=== PATIENT | male | born 1980 | race Caucasian/White ===

== ENCOUNTER 2022-12-28 10:33 | Inpatient (IN) ==
--- NOTE | 2022-12-28 11:11 | Emergency Department Note ---
Impression & Plan Hypoxia, Rhinovirus, Chest pain, Shortness of breath ED Provider Note NAME: KARINA MORROW AGE: 42 SEX: M : 1980 ARRIVES VIA: Walk-In INFORMANT: Patient ED PROVIDER(S): Jerrell Dockery DO CHIEF COMPLAINT: Cough, chest pain and shortness of breath HPI: Patient is a 42-year-old male with a past medical history of hypertension, depression, alcoholism, who is a smoker that presents to the ER for cough, congestion, runny nose, and a sore throat which started this past Thursday. He notes that he has diffuse myalgias and arthralgias as well as low-grade fevers at home. Denies any belly pain, nausea, vomiting, or diarrhea. No dysuria, urgency, or frequency. Does have midsternal chest pain which is worse on palpation and has been constant since this started on Thursday. Shortness of breath is worse with coughing as well. PAST MEDICAL HISTORY:See Below PAST SURGICAL HISTORY:See Below FAMILY HISTORY:See Below SOCIAL HISTORY:See Below HOME MEDICATIONS:See Below ALLERGIES:See Below VITALS:See Below PHYSICAL EXAMINATION: GENERAL: Sitting up in bed, alert, ill-appearing, disheveled, mild distress EYE EXAM: normal conjunctiva. OROPHARYNX: no exudate, no erythema, lips, buccal mucosa, and tongue normal and mucous membranes are moist NECK: supple, no nuchal rigidity, no adenopathy, non-tender LUNGS: Mild wheezing bilateral. Normal chest wall mechanics HEART: no murmurs, S1 normal and S2 normal ABDOMEN: abdomen soft, non-tender, normo-active bowel sounds, no masses, no rebound or guarding. UPPER EXTREMITIES: upper extremities are grossly normal. LOWER EXTREMITIES: No pitting edema. NEURO EXAM: Normal sensorium, cranial nerves II-XII grossly intact, normal speech, no gross weakness of arms, no gross weakness of legs. MEDICAL DECISION MAKING: Patient is a 42-year-old male who presents ER for upper respiratory symptoms. IV was established medicals obtained. Patient was found to be hypoxic at 86% on room air. Placed on 2 L nasal cannula. Did have obvious wheezing on exam. Was given an hour-long neb treatment as well as steroids in light of a history of smoking. Labs show no significant leukocytosis. Mild anemia 13. BMP along with LFTs bilirubin was unremarkable. Lipase is normal. Pro-Magno was negative. Viral panel was positive for rhinovirus. Chest x-ray was clean. Patient was updated bedside discussed with the hospitalist admitted for further work-up of his hypoxia likely secondary to rhinovirus with a history of smoking. Triage Nursing notes reviewed. Limited review of prior medical records performed Vital Signs: reviewed and remarkable for HTN Differential diagnosis: Differential diagnoses includes but is not limited to pneumonia, bronchitis, COPD/Asthma exacerbation, pneumothorax, pulmonary embolism, congestive heart failure, acute coronary syndrome ER treatment provided: See below Diagnostics interpreted by me include EKG and cardiac monitoring as listed below: -Cardiac Monitoring: An order was placed for continuous cardiac monitoring. The monitor shows a rate of 80 with sinus rhythm. -ECG: Sinus rhythm rate 80 Normal axis No PVCs QTc 410 -Laboratory studies:Interpreted by me as stated above in MDM and shown below. Imaging studies: Xrays: As interpreted by me: Portable AP upright 1 view of the chest shows no focal infiltrate per my read CTs show: none Consultation(s): As described in [facility] Procedures:none Critical Care: I have personally spent 31 minutes of critical care time in the direct management of this patient. This includes bedside care, interpretation of diagnostic studies, and testing, discussion with consultants, patient, and family members, and other required patient management activities. This 31 minutes is in excess of all separately billable procedures. Past Med/Surg History Medical History Anxiety and depression GERD (gastroesophageal reflux disease) Hernia History of COVID-19 History of gastric ulcer History of kidney stones Hx of chest pain Hx of migraines Hx of shortness of breath Hyperlipidemia Hypertension Lower abdominal pain Lumbar herniated disc Morbid obesity with BMI of 40.0-44.9, adult Sleep apnea Surgical History History of back surgery History of colonoscopy History of cystoscopy History of esophagogastroduodenoscopy (EGD) (06/2019) History of tooth extraction Hx of appendectomy S/P epidural steroid injection Family History Uncle Family history of diabetes mellitus Uncle Family history of diabetes mellitus Grandmother (Maternal) Family history of diabetes mellitus Other Hypertension No family history of adverse response to anesthesia Denies family history of Ovarian cancer Prostate cancer Breast cancer Colorectal cancer Social History Smoking Status: Current every day smoker Tobacco Type: Cigarettes packs per day: 1.5; Cigarettes Per Day: 20; Second Hand Exposure: No; Do You Dip or Chew Tobacco: No; Hx Alcohol Use: Yes Alcohol type: beer Alcohol Intake Frequency: 4 or More x per/Week Hx Substance Use: No Preferred Language: Kyrgyz Communication Ability: Effective Personnel And Payroll Technician Required: No Beliefs That Will Affect Care: None marital status: Legally Current Living Situation: Parent, Family and Significant Other current occupational status: employed current occupation: Labor How many Children do You have: 3 Feels Safe at Home: Yes Childhood Exposure to Second-Hand Smoke: Yes Diet: regular caffeine: Yes during the past year weight has: increased > 10 lbs Dental Care, Regularly: No Physical Activity Frequency: 3-4 Times per Week Seatbelt Use: sometimes Sunscreen Use: No Assistive Devices: Cane, CPAP, Denture - Upper, Denture - Lower and Glasses Allergies Allergies Allergy/AdvReac Type Severity Reaction Status Date / Time No Known Allergies Allergy Verified 12/28/22 14:32 Home Meds Home Medications Medication Instructions Recorded Confirmed fluticasone propionate 50 See Rx Instructions intranasal BID 07/22/22 12/28/22 mcg/actuation nasal PRN Congestion spray,suspension (Flonase Allergy Relief) Previous Rx's Medication Instructions Recorded amlodipine 10 mg tablet 10 mg PO QAM #30 tabs 07/22/22 bupropion HCl 150 mg 24 hr tablet, 150 mg PO QAM #30 tabs 07/22/22 extended release (Wellbutrin XL) hydroxyzine HCl 25 mg tablet 25 mg PO TID PRN anxiety #90 tabs 07/22/22 lisinopril 10 mg tablet 10 mg PO QAM #30 tabs 07/22/22 pantoprazole 40 mg tablet,delayed 40 mg PO QAM #30 tabs 07/22/22 release sertraline 100 mg tablet 100 mg PO QAM #30 tabs 07/22/22 sumatriptan succinate 50 mg tablet 50 mg PO UD PRN Migraine Headache 07/22/22 #30 tabs triamcinolone acetonide 0.1 % 1 applic topical BID PRN rash #15 07/22/22 topical cream grams atorvastatin 40 mg tablet 40 mg PO QPM #30 tabs 11/07/22 gabapentin 800 mg tablet 800 mg PO TID #90 tabs 11/07/22 tizanidine 4 mg tablet 4 mg PO Q6H PRN muscle spasticity 11/07/22 #90 tabs albuterol sulfate 90 mcg/actuation 3 inh inhalation Q6H PRN shortness 12/15/22 aerosol inhaler of breath or wheezing #6.7 grams Results & Data (ED) Vital Signs Vital Signs - 24 hr 12/28/22 10:40 12/28/22 11:55 12/28/22 12:14 Temperature 37.1 C Temperature Source Oral Pulse Rate 78 77 Pulse Rate [Bilateral] Pulse Rate [Right Finger] Respiratory Rate 24 Respiratory Effort / Characteristics Blood Pressure 153/98 H Blood Pressure [Right Arm] Blood Pressure Mean 116 Blood Pressure Mean [Right Arm] Blood Pressure Position Sitting Pulse Oximetry 92 86 L Oxygen Delivery Method Room Air Room Air Oxygen Flow Rate Sepsis Recent Fever Within 48 Hours No Sepsis New/Unexplained Change in Mental Status No Sepsis Action Taken by Nursing No Action Required 12/28/22 12:14 12/28/22 12:33 12/28/22 13:17 Temperature Temperature Source Pulse Rate Pulse Rate [Bilateral] 100 H Pulse Rate [Right Finger] 75 Respiratory Rate 16 18 Respiratory Effort / Characteristics Non-Labored Spontaneous Blood Pressure Blood Pressure [Right Arm] 153/94 H Blood Pressure Mean Blood Pressure Mean [Right Arm] 113 Blood Pressure Position Pulse Oximetry 90 93 95 Oxygen Delivery Method Room Air Room Air Aerosol Mask Oxygen Flow Rate 7 Sepsis Recent Fever Within 48 Hours Sepsis New/Unexplained Change in Mental Status Sepsis Action Taken by Nursing 12/28/22 14:21 12/28/22 14:22 12/28/22 14:23 Temperature Temperature Source Pulse Rate Pulse Rate [Bilateral] 85 Pulse Rate [Right Finger] Respiratory Rate 20 Respiratory Effort / Characteristics Blood Pressure Blood Pressure [Right Arm] Blood Pressure Mean Blood Pressure Mean [Right Arm] Blood Pressure Position Pulse Oximetry 86 L 90 90 Oxygen Delivery Method Room Air Nasal Cannula Nasal Cannula Oxygen Flow Rate 2 4 Sepsis Recent Fever Within 48 Hours Sepsis New/Unexplained Change in Mental Status Sepsis Action Taken by Nursing Laboratory Data 12/28/22 11:56 12/28/22 11:56 Lab Results 12/28/22 12/28/22 12/28/22 Range/Units 11:46 11:46 11:56 WBC 8.67 (4.8-10.8) K/ul RBC 4.50 L (4.70-6.10) M/uL Hgb 13.8 L (14.0-18.0) g/dl Hct 40.3 L (42.0-52.0) % MCV 89.6 (80.0-100.0) fL MCH 30.7 (25.0-34.0) pg MCHC 34.2 (32.0-36.0) g/dL RDW Std Deviation 43.0 (36.4-46.3) fL RDW Coeff of Boris 13.0 (11.5-14.5) % Plt Count 254 (130-400) K/uL MPV 9.3 L (9.4-12.4) fL Immature Gran % (Auto) 0.7 % Neut % (Auto) 65.9 % Lymph % (Auto) 19.0 % Stephens % (Auto) 8.7 % Eos % (Auto) 5.0 % Baso % (Auto) 0.7 % Neut # (Auto) 5.72 (1.40-6.50) K/uL Lymph # (Auto) 1.65 (1.2-3.4) K/uL Stephens # (Auto) 0.75 H (0.11-0.59) K/uL Eos # (Auto) 0.43 (0-0.50) K/uL Baso # (Auto) 0.06 (0-0.2) K/uL Immature Gran # (Auto) 0.06 (0.01-0.20) K/uL Sodium (136-145) mmol/L Potassium (3.5-5.1) mmol/L Chloride (98-107) mmol/L Carbon Dioxide (21-32) mmol/L Anion Gap (3-11) BUN (6-23) mg/dl Creatinine (0.6-1.4) mg/dl Est Cr Clr Drug Dosing ml/min Est GFR ( Amer) ml/min Est GFR (Non-Af Amer) ml/min BUN/Creatinine Ratio (10-20) Glucose (70-99(Fasting)) mg/dl Calcium (8.6-10.3) mg/dl Magnesium (1.7-2.4) mg/dl Total Bilirubin (0.2-1.0) mg/dl AST (13-39) U/L ALT (7-52) U/L Alkaline Phosphatase (34-104) U/L Troponin I High Sens (0-20) pg/ml Total Protein (6.0-8.3) gm/dl Albumin (3.4-5.0) gm/dl Globulin (2.5-4.0) gm/dl Albumin/Globulin Ratio (0.9-2) Lipase (11-82) U/L Procalcitonin (0-0.5) ng/ml Adenovirus (PCR) Not Detected (NotDetected) B. pertussis DNA (PCR) Not Detected (NotDetected) B.parapertussis DNA PCR Not Detected (NotDetected) C. pneumoniae DNA (PCR) Not Detected (NotDetected) Coronavirus OC43 (PCR) Not Detected (NotDetected) Coronavirus HKU1 (PCR) Not Detected (NotDetected) Coronavirus 229E (PCR) Not Detected (NotDetected) SARS-CoV-2 (PCR) NEGATIVE Not Detected (Negative) Coronavirus NL63 (PCR) Not Detected (NotDetected) Human Metapneumovir PCR Not Detected (NotDetected) Influenza Type A (PCR) Not Detected (NotDetected) Influenza Type B (PCR) Not Detected (NotDetected) M. pneumoniae (PCR) Not Detected (NotDetected) Parainfluenza 1 (PCR) Not Detected (NotDetected) Parainfluenza 2 (PCR) Not Detected (NotDetected) Parainfluenza 3 (PCR) Not Detected (NotDetected) Parainfluenza 4 (PCR) Not Detected (NotDetected) RSV (PCR) Not Detected (NotDetected) Entero/Rhino (PCR) DETECTED A* (NotDetected) 12/28/22 12/28/22 Range/Units 11:56 11:56 WBC (4.8-10.8) K/ul RBC (4.70-6.10) M/uL Hgb (14.0-18.0) g/dl Hct (42.0-52.0) % MCV (80.0-100.0) fL MCH (25.0-34.0) pg MCHC (32.0-36.0) g/dL RDW Std Deviation (36.4-46.3) fL RDW Coeff of Boris (11.5-14.5) % Plt Count (130-400) K/uL MPV (9.4-12.4) fL Immature Gran % (Auto) % Neut % (Auto) % Lymph % (Auto) % Stephens % (Auto) % Eos % (Auto) % Baso % (Auto) % Neut # (Auto) (1.40-6.50) K/uL Lymph # (Auto) (1.2-3.4) K/uL Stephens # (Auto) (0.11-0.59) K/uL Eos # (Auto) (0-0.50) K/uL Baso # (Auto) (0-0.2) K/uL Immature Gran # (Auto) (0.01-0.20) K/uL Sodium 137 (136-145) mmol/L Potassium 4.4 (3.5-5.1) mmol/L Chloride 102 (98-107) mmol/L Carbon Dioxide 30 (21-32) mmol/L Anion Gap 5 (3-11) BUN 12 (6-23) mg/dl Creatinine 0.95 (0.6-1.4) mg/dl Est Cr Clr Drug Dosing 114.9 ml/min Est GFR ( Amer) 113.2 ml/min Est GFR (Non-Af Amer) 97.6 ml/min BUN/Creatinine Ratio 12.6 (10-20) Glucose 102 H (70-99(Fasting)) mg/dl Calcium 9.7 (8.6-10.3) mg/dl Magnesium 1.9 (1.7-2.4) mg/dl Total Bilirubin 0.4 (0.2-1.0) mg/dl AST 21 (13-39) U/L ALT 27 (7-52) U/L Alkaline Phosphatase 140 H (34-104) U/L Troponin I High Sens 4.1 (0-20) pg/ml Total Protein 7.5 (6.0-8.3) gm/dl Albumin 4.5 (3.4-5.0) gm/dl Globulin 3.0 (2.5-4.0) gm/dl Albumin/Globulin Ratio 1.5 (0.9-2) Lipase 9 L (11-82) U/L Procalcitonin 0.05 (0-0.5) ng/ml Adenovirus (PCR) (NotDetected) B. pertussis DNA (PCR) (NotDetected) B.parapertussis DNA PCR (NotDetected) C. pneumoniae DNA (PCR) (NotDetected) Coronavirus OC43 (PCR) (NotDetected) Coronavirus HKU1 (PCR) (NotDetected) Coronavirus 229E (PCR) (NotDetected) SARS-CoV-2 (PCR) (Negative) Coronavirus NL63 (PCR) (NotDetected) Human Metapneumovir PCR (NotDetected) Influenza Type A (PCR) (NotDetected) Influenza Type B (PCR) (NotDetected) M. pneumoniae (PCR) (NotDetected) Parainfluenza 1 (PCR) (NotDetected) Parainfluenza 2 (PCR) (NotDetected) Parainfluenza 3 (PCR) (NotDetected) Parainfluenza 4 (PCR) (NotDetected) RSV (PCR) (NotDetected) Entero/Rhino (PCR) (NotDetected) Administered Medications Discontinued Medications Albuterol (Albuterol 0.083% Nebu Soln 3 Ml Vial) 10 mg NEB NOW STA; Protocol Stop: 12/28/22 12:14 Last Admin: 12/28/22 12:32 Dose: 10 mg Documented By: LELAND Magnesium Sulfate/Dextrose (Magnesium Sulfate / D5w) 1 gm in 100 mls @ 50 mls/hr IV ONE ONE Stop: 12/28/22 15:31 Last Admin: 12/28/22 14:17 Dose: 50 mls/hr Documented By: BENITA Ioversol (Ioversol 350 Mg 125ml Prefilled Syringe) 120 ml IV ONCE ONE Stop: 12/28/22 14:05 Last Admin: 12/28/22 14:04 Dose: 120 ml Documented By: ELIER Methylprednisolone (Methylprednisolone 40 Mg/Ml Vial) 40 mg IV NOW STA Stop: 12/28/22 12:14 Last Admin: 12/28/22 12:54 Dose: 40 mg Documented By: TBS Imaging Data Radiologist's Impression: Chest X-Ray 12/28/22 10:51 XR chest 1V portable CLINICAL HISTORY: Chest pain, nonspecific TECHNIQUE: Single frontal radiograph of the chest was obtained. Comparison: None available at the time of this dictation. FINDINGS: No lines and tubes are seen. The cardiomediastinal silhouette is normal. The lungs are clear. No evidence of pleural effusion or pneumothorax. IMPRESSION: No acute chest disease. ACT 112: Negative or not required by law. Electronically signed by: Cole Mathew M.D. 12/28/2022 11:12 AM Chest CTA 12/28/22 13:17 CT angio chest PE protocol CLINICAL HISTORY: PE TECHNIQUE: Multidetector row helical CT of the chest was performed with angiographic protocol. Coronal and sagittal reformations were obtained. Coronal and sagittal MIPS were obtained from the axial data set and were submitted for review. Automated dose lowering techniques and/or adjustment according to patient size were utilized for this exam. CT DOSE: 914.05 mGy.cm Comparison: None available at the time of this dictation. FINDINGS: Lungs and pleura: Normal. Heart and pericardium: Heart size is normal. No pericardial effusion. Vessels: No evidence of pulmonary embolism. Mediastinum and chao: Subcentimeter lymph nodes are seen. Chest wall and lower neck: Unremarkable. Abdomen: Unremarkable. Bones: Degenerative changes in the thoracic spine. IMPRESSION: No acute abnormality and in particular no evidence of pulmonary embolus. ACT 112: Negative or not required by law. Electronically signed by: Cole Mathew M.D. 12/28/2022 2:37 PM Discharge Plan Visit Data Chief Complaint: Cough ED Provider: Jerrell Dockery Discharge Problem: Hypoxia, Rhinovirus, Chest pain, Shortness of breath Forms Stand Alone Forms: [employer] Prescriptions Prescriptions: No Action tizanidine 4 mg tablet 4 mg PO Q6H PRN (Reason: muscle spasticity) Qty: 90 2RF gabapentin 800 mg tablet 800 mg PO TID Qty: 90 2RF atorvastatin 40 mg tablet 40 mg PO QPM Qty: 30 2RF Rx Instructions: Pt. aware of dose change albuterol sulfate 90 mcg/actuation HFA aerosol inhaler 3 inh inhalation Q6H PRN (Reason: shortness of breath or wheezing) Qty: 6.7 2RF fluticasone propionate [Flonase Allergy Relief] 50 mcg/actuation spray,suspension See Rx Instructions intranasal BID PRN (Reason: Congestion) Rx Instructions: intranasally twice a day PRN; amlodipine 10 mg tablet 10 mg PO QAM Qty: 30 5RF bupropion HCl [Wellbutrin XL] 150 mg tablet extended release 24 hr 150 mg PO QAM Qty: 30 5RF hydroxyzine HCl 25 mg tablet 25 mg PO TID PRN (Reason: anxiety) Qty: 90 5RF lisinopril 10 mg tablet 10 mg PO QAM Qty: 30 5RF pantoprazole 40 mg tablet,delayed release (DR/EC) 40 mg PO QAM Qty: 30 5RF triamcinolone acetonide 0.1 % cream 1 applic topical BID PRN (Reason: rash) Qty: 15 0RF sertraline 100 mg tablet 100 mg PO QAM Qty: 30 5RF sumatriptan succinate 50 mg tablet 50 mg PO UD PRN (Reason: Migraine Headache) Qty: 30 5RF Rx Instructions: take 1 tab at onset of headache; if no relief may repeat 1 tab after at least 2 hrs; max = 4 tabs/24 hr PO Referrals Referrals: Jennifer Urrutia MD [Primary Care Provider] -
--- NOTE | 2022-12-28 11:14 | XRay Report ---
XR chest 1V portable CLINICAL HISTORY: Chest pain, nonspecific TECHNIQUE: Single frontal radiograph of the chest was obtained. Comparison: None available at the time of this dictation. FINDINGS: No lines and tubes are seen. The cardiomediastinal silhouette is normal. The lungs are clear. No evid ence of pleural effusion or pneumothorax. IMPRESSION: No acute chest disease. ACT 112: Negative or not required by law. Electronically signed by: Cole Mathew M.D. 12/28/2022 11:12 AM
--- NOTE | 2022-12-28 11:52 | Electrocardiogram Report ---
Test Reason : Blood Pressure : / mmHG Vent. Rate : 080 BPM Atrial Rate : 080 BPM P-R Int : 156 ms QRS Dur : 078 ms QT Int : 356 ms P-R-T Axes : 057 064 035 degrees QTc Int : 410 ms Normal sinus rhythm Normal ECG When compared with ECG of 02-FEB-2022 23:26, No significant change was found Confirmed by Sterling Damon ([id number]) on 12/28/2022 11:51:50 AM Referred By: Confirmed By:Sterling Damon
[2022-12-28 12:10] LABS: Basophils # (auto) 0.06 K/uL (0-0.2); Basophils % (auto) 0.7 %; Eosinophils # (auto) 0.43 K/uL (0-0.50); Hematocrit (blood only) 40.3 % (42.0-52.0); Hemoglobin 13.8 g/dl (14.0-18.0); Immature Granulocytes # (auto) 0.06 K/uL (0.01-0.20); Immature Granulocytes % (auto) 0.7 %; Lymphocytes # (auto) 1.65 K/uL (1.2-3.4); Mean Corpuscular Hemoglobin 30.7 pg (25.0-34.0); Mean Corpuscular Hgb Conc 34.2 g/dL (32.0-36.0); Mean Corpuscular Volume 89.6 fL (80.0-100.0); Mean Platelet Volume 9.3 fL (9.4-12.4); Monocytes # (auto) 0.75 K/uL (0.11-0.59); Monocytes % (auto) 8.7 %; Neutrophils # (auto) 5.72 K/uL (1.40-6.50); Neutrophils % (auto) 65.9 %; Platelet Count 254 K/uL (130-400); White Blood Count 8.67 K/ul (4.8-10.8)
[2022-12-28] MEDS ORDERED: ALBUTEROL 0.083% NEBU SOLN 3 ML VIAL NEB STA (12:13)
[2022-12-28 12:27] LABS: Albumin Globulin Ratio 1.5 (0.9-2); Albumin Level 4.5 gm/dl (3.4-5.0); BUN Creatinine Ratio 12.6 (10-20); Bilirubin,Total 0.4 mg/dl (0.2-1.0); Calcium 9.7 mg/dl (8.6-10.3); Creatinine Clr Calc Pharmacy 114.9 ml/min; Est GFR (African American) 113.2 ml/min; Est GFR (Non-African American) 97.6 ml/min; Potassium 4.4 mmol/L (3.5-5.1); Total Protein 7.5 gm/dl (6.0-8.3)
[2022-12-28 12:33] LABS: Troponin I High Sensitivity 4.1 pg/ml (0-20)
--- NOTE | 2022-12-28 13:08 | History & Physical Report ---
Date of Service December 28, 2022 Assessment & Plan (1) Acute respiratory failure with hypoxia: Plan: Acute hypoxic respiratory failure, entero-/rhinovirus with possible exacerbation of COPD No leukocytosis Creatinine normal High sensitive troponin normal Respiratory bio fire: Positive for entero-/rhinovirus Patient with tobacco use and wheezing, received methylprednisolone 40 mg and albuterol Procalcitonin wnl CXR: No acute findings, no consolidation seen Admitting EKG: Normal sinus rhythm, no acute ST or T wave changes. QTc 410. No signs of ischemia History of tobacco abuse No diagnosed COPD, no PFTs available for review Endorses wheezing with illness, no wheezing at baseline and has had wheezing when ill intermittently Recommend PFTs when at normal baseline health as outpatient. Due to wheezing and exacerbation of viral illness with history of tobacco abuse we will treat empirically with prednisone/azithromycin on admission to cover for viral exacerbation of occult/undiagnosed COPD. 1 g IV mag given patient is tachypneic on 7 L while on nebulizer with borderline SPO2 of 94%. Given no daytime oxygen requirement, significant hypoxia despite 7 L aerosol mask and inspiratory/pleuritic pain will order CTAPE protocol although rib pain is more likely MSK from continued coughing. Hypertension Continue lisinopril Continue amlodipine Hyperlipidemia Continue atorvastatin Anxiety/depression Continue bupropion, home hydroxyzine 3 times daily as needed, PUNEET CPAP nightly oxygen bleed as needed Chronic low back pain with radiculopathy S/p L5-S1 laminectomy and spinal fusion with Dr. Brown complicated in 2021 by postop infection Continue tizanidine as needed for spasms No acute exacerbation of back pain, at baseline DVT prophylaxis: Lovenox Disposition: Medical/surgical Diet: Heart healthy, low-sodium CODE STATUS: Full code (2) GERD (gastroesophageal reflux disease): (3) HTN (hypertension), benign: (4) Morbid (severe) obesity due to excess calories: History of Present Illness Primary Care Provider: Jennifer Urrutia MD Rashi is a 41-year-old male with a past medical history of hyperlipidemia, GE RD, hypertension, tobacco use disorder, alcoholism, PUNEET, nocturnal hypoxemia, depression/anxiety, history of dysphagia with normal EGD who presents to the emergency department with cough, congestion, rhinitis and a sore throat of 3 days with diffuse myalgias/arthralgias [place] [id number] at home. He is recommended for for hypoxic respiratory failure of suspected viral URI. Rashi presents to the emergency department with several days of rib discomfort when coughing, inspiratory pain when breathing, shortness of breath, low-grade fevers and general achiness. Painful to breath. No chest pain, but notes his bottom ribs feel painful from coughing. Additionally has pain in his ribs and taking a deep breath. Tired and arms feel achy. Cigarettes 1ppd x30 years, denies history of COPD No history of SD. FHx of SD in 40s, father PGM and uncles. PGM with CVA in older age. uses CPAP with oxygen bleed qhs, but does not know how much took medicines this morning No dysuria Endorses rib pain, but no abdominal pain Medical History: Reviewed Medications: Reviewed Surgical History: Reviewed Family history: Reviewed Allergies: Reviewed Social History: 1ppd. Etoh 2-3 days per week, 4 drinks in a sitting. No history of withdrawal Code Status: Code Full Allergies Allergy/AdvReac Type Severity Reaction Status Date / Time No Known Allergies Allergy Verified 12/11/22 08:29 Home Medications Medication Instructions Recorded Confirmed Type amlodipine 10 mg tablet 10 mg PO QAM #30 tabs 07/22/22 12/11/22 Rx bupropion HCl 150 mg 24 hr tablet, 150 mg PO QAM #30 tabs 07/22/22 12/11/22 Rx extended release (Wellbutrin XL) fluticasone propionate 50 See Rx Instructions intranasal BID 07/22/22 12/11/22 History mcg/actuation nasal PRN spray,suspension (Flonase Allergy Relief) hydroxyzine HCl 25 mg tablet 25 mg PO TID PRN anxiety #90 tabs 07/22/22 12/11/22 Rx lisinopril 10 mg tablet 10 mg PO QAM #30 tabs 07/22/22 12/11/22 Rx pantoprazole 40 mg tablet,delayed 40 mg PO QAM #30 tabs 07/22/22 12/11/22 Rx release sertraline 100 mg tablet 100 mg PO QAM #30 tabs 07/22/22 12/11/22 Rx sumatriptan succinate 50 mg tablet 50 mg PO UD PRN Migraine Headache 07/22/22 12/11/22 Rx #30 tabs triamcinolone acetonide 0.1 % 1 applic topical BID PRN rash #15 07/22/22 12/11/22 Rx topical cream grams atorvastatin 40 mg tablet 40 mg PO QPM #30 tabs 11/07/22 12/11/22 Rx gabapentin 800 mg tablet 800 mg PO TID #90 tabs 11/07/22 12/11/22 Rx tizanidine 4 mg tablet 4 mg PO Q6H PRN muscle spasticity 11/07/22 12/11/22 Rx #90 tabs albuterol sulfate 90 mcg/actuation 3 inh inhalation Q6H PRN shortness 12/15/22 Rx aerosol inhaler of breath or wheezing #6.7 grams Past Med/Surg History Medical History Anxiety and depression GERD (gastroesophageal reflux disease) Hernia History of COVID-19 History of gastric ulcer History of kidney stones Hx of chest pain Hx of migraines Hx of shortness of breath Hyperlipidemia Hypertension Lower abdominal pain Lumbar herniated disc Morbid obesity with BMI of 40.0-44.9, adult Sleep apnea Surgical History History of back surgery History of colonoscopy History of cystoscopy History of esophagogastroduodenoscopy (EGD) (06/2019) History of tooth extraction Hx of appendectomy S/P epidural steroid injection Family History Uncle Family history of diabetes mellitus Uncle Family history of diabetes mellitus Grandmother (Maternal) Family history of diabetes mellitus Other Hypertension No family history of adverse response to anesthesia Denies family history of Ovarian cancer Prostate cancer Breast cancer Colorectal cancer Social History Smoking Status: Current every day smoker Tobacco Type: Cigarettes packs per day: 1.5; Cigarettes Per Day: 20; Second Hand Exposure: No; Do You Dip or Chew Tobacco: No; Hx Alcohol Use: Yes Alcohol type: beer Alcohol Intake Frequency: 4 or More x per/Week Hx Substance Use: No Preferred Language: Stateless Communication Ability: Effective Cyber Intelligence Analyst Required: No Beliefs That Will Affect Care: None marital status: Legally Current Living Situation: Parent, Family and Significant Other current occupational status: employed current occupation: Labor How many Children do You have: 3 Feels Safe at Home: Yes Childhood Exposure to Second-Hand Smoke: Yes Diet: regular caffeine: Yes during the past year weight has: increased > 10 lbs Dental Care, Regularly: No Physical Activity Frequency: 3-4 Times per Week Seatbelt Use: sometimes Sunscreen Use: No Assistive Devices: Cane, CPAP, Denture - Upper, Denture - Lower and Glasses Review of Systems Review of Systems: All systems reviewed & are unremarkable except as noted in HPI & below Physical Exam Physical Exam: General: A&Ox3. NAD. Cooperative. HEENT: Atraumatic, normocephalic. Vision/hearing grossly intact Pulm: Scattered diffuse expiratory wheezes. Patient is on nebulizer at time of exam. Right and left lower ribs tender to palpation. Symmetrical chest rise. No increased work of breathing. No respiratory distress. Cardiac: RRR, -mrg. Radial pulses intact and symmetrical. Abdominal: Nontender, nondistended, soft. BS present. Extremities: Warm, dry. Moves all extremities equally. Is able to ambulate to the bathroom without difficulty or assistance Results & Data Results & Data Vital Signs (Past 12 Hours) Vital Signs Temp Pulse Pulse Resp BP Pulse Ox O2 Del Method 12/28/22 12:33 75 16 93 Room Air 12/28/22 12:14 90 Room Air 12/28/22 12:14 86 L Room Air 12/28/22 11:55 77 12/28/22 10:40 37.1 C 78 24 153/98 H 92 Room Air PG Care Time/CCT Total # of Minutes Spent Total Time Spent with Patient: Total time spent is greater than 50% in coordination of care (as documented) at patient's floor/unit and/or counseling patient: Coding Level of Care Code 31961 INT INP/OBS CARE 3/75MIN Diagnoses Acute respiratory failure with hypoxia J96.01 GERD (gastroesophageal reflux disease) K21.9 HTN (hypertension), benign I10 Morbid (severe) obesity due to excess calories E66.01
[2022-12-28] MEDS ORDERED: MAGNESIUM SULFATE / D5W 1 GM/100 ML BAG IV ONE (13:32)
[2022-12-28 13:38] LABS: Adenovirus PCR Not Detected (NotDetected); Bordetella parapertussis PCR Not Detected (NotDetected); Bordetella pertussis PCR Not Detected (NotDetected); Chlamydia pneumoniae PCR Not Detected (NotDetected); Coronavirus 229E PCR Not Detected (NotDetected); Coronavirus CoV-2 (COVID19)PCR Not Detected (NotDetected); Coronavirus HKU1 PCR Not Detected (NotDetected); Coronavirus NL63 PCR Not Detected (NotDetected); Coronavirus OC43PCR Not Detected (NotDetected); Human Metapneumovirus PCR Not Detected (NotDetected); Influenza A PCR Not Detected (NotDetected); Influenza B PCR Not Detected (NotDetected); Mycoplasma pneumoniae PCR Not Detected (NotDetected); Parainfluenza Virus 1 PCR Not Detected (NotDetected); Parainfluenza Virus 2 PCR Not Detected (NotDetected); Parainfluenza Virus 3 PCR Not Detected (NotDetected); Parainfluenza Virus 4 PCR Not Detected (NotDetected); Respiratory Syncytial VirusPCR Not Detected (NotDetected)
[2022-12-28 13:49] LABS: Magnesium 1.9 mg/dl (1.7-2.4)
[2022-12-28] MEDS ORDERED: IOVERSOL 350 MG 125mL Prefilled Syringe IV ONE (14:04)
[2022-12-28 14:16] LABS: Rhinovirus/Enterovirus PCR DETECTED (NotDetected)
--- NOTE | 2022-12-28 14:39 | CT Scan Report ---
CT angio chest PE protocol CLINICAL HISTORY: PE TECHNIQUE: Multidetector row helical CT of the chest was performed with angiographic protocol. Lyman l and sagittal reformations were obtained. Coronal and sagittal MIPS were obtained from the axial hernan a set and were submitted for review. Automated dose lowering techniques and/or adjustment according to patient size were utilized for this exam. CT DOSE: 914.05 mGy.cm Comparison: None available at the time of this dictation. FINDINGS: Lungs and pleura: Normal. Heart and pericardium: Heart size is normal. No pericardial effusion. Vessels: No evidence of pulmonary embolism. Mediastinum and chao: Subcentimeter lymph nodes are seen. Chest wall and lower neck: Unremarkable. Abdomen: Unremarkable. Bones: Degenerative changes in the thoracic spine. IMPRESSION: No acute abnormality and in particular no evidence of pulmonary embolus. ACT 112: Negative or not required by law. Electronically signed by: Cole Mathew M.D. 12/28/2022 2:37 PM
[2022-12-28] MEDS ORDERED: LIDOCAINE 5% 1 PATCH TD STA (16:21)
[2022-12-28] MEDS ORDERED: KETOROLAC TROMETHAMINE 15 MG/ML VIAL IV PRN (16:21)
[2022-12-28] MEDS ORDERED: NICOTINE 14 MG/24 HR PATCH TD ONE (16:47)
[2022-12-28] MEDS: ACETAMINOPHEN 325 MG TAB PO PRN (19:11)
[2022-12-28] MEDS ORDERED: hydrOXYzine HCl 25 MG TAB PO PRN (19:41)
[2022-12-28] MEDS ORDERED: AZITHROMYCIN 250 MG TAB PO ONE (19:41)
[2022-12-28] MEDS ORDERED: ALBUT/IPRATROP 3MG/0.5MG NEB 3 ML VIAL NEB PRN (19:41)
[2022-12-28] MEDS: NICOTINE 14 MG/24 HR PATCH TD SCH (20:33)
[2022-12-28] MEDS: ENOXAPARIN INJ 40 MG/0.4 ML SYR SQ SCH (21:45)
[2022-12-28] MEDS: ATORVASTATIN 40 MG TAB PO SCH (21:46)
[2022-12-28] MEDS: GABAPENTIN 800 MG TAB PO SCH (21:46)
[2022-12-28] MEDS: guaiFENesin 600 MG TABCR PO SCH (21:46)
[2022-12-28] MEDS: KETOROLAC TROMETHAMINE 15 MG/ML VIAL IV PRN (23:04)
[2022-12-29] MEDS: ACETAMINOPHEN 325 MG TAB PO PRN ×2 (04:16→09:41)
[2022-12-29 06:33] LABS: Basophils # (auto) 0.04 K/uL (0-0.2); Basophils % (auto) 0.3 %; Eosinophils # (auto) 0.02 K/uL (0-0.50); Eosinophils % (auto) 0.1 %; Hemoglobin 14.4 g/dl (14.0-18.0); Immature Granulocytes # (auto) 0.09 K/uL (0.01-0.20); Immature Granulocytes % (auto) 0.6 %; Lymphocytes # (auto) 1.06 K/uL (1.2-3.4); Lymphocytes % (auto) 7.4 %; Mean Corpuscular Hemoglobin 30.6 pg (25.0-34.0); Mean Corpuscular Hgb Conc 34.3 g/dL (32.0-36.0); Mean Corpuscular Volume 89.2 fL (80.0-100.0); Mean Platelet Volume 9.2 fL (9.4-12.4); Monocytes # (auto) 1.07 K/uL (0.11-0.59); Monocytes % (auto) 7.5 %; Neutrophils # (auto) 12.06 K/uL (1.40-6.50); Neutrophils % (auto) 84.1 %; Platelet Count 299 K/uL (130-400); RDW Coefficient of Variation 12.8 % (11.5-14.5); RDW Standard Deviation 41.7 fL (36.4-46.3); Red Blood Count 4.71 M/uL (4.70-6.10); White Blood Count 14.34 K/ul (4.8-10.8)
[2022-12-29 06:55] LABS: Calcium 9.4 mg/dl (8.6-10.3); Creatinine Clr Calc Pharmacy 112.7 ml/min; Est GFR (African American) 114.6 ml/min; Est GFR (Non-African American) 98.9 ml/min; Potassium 4.8 mmol/L (3.5-5.1)
[2022-12-29] MEDS: lisinopril 10 MG TAB PO SCH (07:28)
[2022-12-29] MEDS ORDERED: AZITHROMYCIN 250 MG TAB PO SCH (09:00)
[2022-12-29] MEDS ORDERED: predniSONE 20 MG TAB PO SCH (09:00)
[2022-12-29] MEDS: GABAPENTIN 800 MG TAB PO SCH ×3 (09:37→19:35)
[2022-12-29] MEDS: SERTRALINE HCL 100 MG TABLET PO SCH (09:38)
[2022-12-29] MEDS: buPROPion XL 150 MG TABCR PO SCH (09:38)
[2022-12-29] MEDS: guaiFENesin 600 MG TABCR PO SCH ×2 (09:38→19:34)
[2022-12-29] MEDS: PANTOprazole 40 MG TAB PO SCH (09:38)
[2022-12-29] MEDS: amLODIPine BESYLATE 5 MG TAB PO SCH (09:39)
[2022-12-29] MEDS: NICOTINE 14 MG/24 HR PATCH TD SCH (12:11)
--- NOTE | 2022-12-29 14:02 | Electrocardiogram Report ---
Test Reason : Blood Pressure : / mmHG Vent. Rate : 081 BPM Atrial Rate : 081 BPM P-R Int : 148 ms QRS Dur : 082 ms QT Int : 374 ms P-R-T Axes : 052 064 038 degrees QTc Int : 434 ms Normal sinus rhythm Normal ECG When compared with ECG of 28-DEC-2022 10:48, No significant change was found Confirmed by Sterling Damon ([id number]) on 12/29/2022 2:02:17 PM Referred By: REFERRED SELF Confirmed By:Sterling Damon
[2022-12-29] MEDS ORDERED: traMADol HCL 50 MG TABLET PO PRN (14:20)
[2022-12-29] MEDS: methylPREDNISolone 40 MG in SYRINGE 0 ML IV SCH ×2 (15:06→21:59)
[2022-12-29] MEDS: tiZANidine HCL 4 MG TABLET PO PRN (15:07)
[2022-12-29] MEDS: LIDOCAINE 5% 1 PATCH TD SCH (15:15)
[2022-12-29] MEDS: ALBUT/IPRATROP 3MG/0.5MG NEB 3 ML VIAL NEB SCH ×2 (15:35→19:21)
[2022-12-29] MEDS: ENOXAPARIN INJ 40 MG/0.4 ML SYR SQ SCH (19:35)
[2022-12-29] MEDS: ATORVASTATIN 40 MG TAB PO SCH (19:35)
[2022-12-29] MEDS: BENZONATATE 100 MG CAPSULE PO SCH (19:37)
--- NOTE | 2022-12-29 20:01 | Hospitalist Progress Note ---
Date of Service December 29, 2022 Assessment & Plan (1) Acute respiratory failure with hypoxia: Plan: 2nd to acute bronchitis from rhinovirus infection still with O2 requirement airation poor on exam plan - * change prednisone to solumedrol 40mg IV q8h * add nebs qid scheduled * flutter valve/incentive stefano * tessalon TID * stop zithromax - no role in viral infection, and CTA chest neg for infiltrates (2) Rhinovirus infection: Plan: with resulting #1/acute bronchitis droplet precautions see #1 above (3) GERD (gastroesophageal reflux disease): Plan: cont PPI (4) HTN (hypertension), benign: Plan: cont amlodipine cont lisinopril (5) Morbid (severe) obesity due to excess calories: Plan: BMI 43 (6) Obstructive sleep apnea: Plan: CPAP with O2 at HS (7) Tobacco use disorder: 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 (8) Hyperlipidemia: Plan: cont lipitor daily (9) Migraine: Plan: history of such if any headache while here toradol prn will help steroids for #1/#2 will help can use triptan therapy cautiously if needed Plan DVT proph - lovenox daily significant other updated at bedside Admission and Anticipated Discharge Date Admission Date: December 28, 2022 Subjective patient continues to require NC O2 he reports he blends 3 L of O2 into his CPAP unit with sleep continues to cough and have congestion +CALLAHAN but mildly improved from yesterday c/o b/l subcostal margin pain from coughing - asks for pain meds for this no fevers eating well - 100% of meals tele overnight - NSR Review of Systems Review of Systems: cv - no substernal chest pain pulm - no dyspnea at rest; +wheezing GI - no abd pain/nausea/emesis Physical Exam Physical Exam: gen - morbidly obese, NAD, coughing neck - no JVD mouth - MMM heart - RRR, s1 s2, no murmur lungs - poor airation, occasional wheeze, crackles bases abd - soft NT ND BS+ ext - no edema, pulses 2+ b/l psych - a/o x 3 Results & Data Results & Data Vital Signs (Past 12 Hours) Vital Signs Temp Pulse Pulse Pulse Resp BP Pulse Ox 12/29/22 19:21 81 20 93 12/29/22 17:18 74 12/29/22 15:38 76 16 97 12/29/22 14:28 36.7 C 80 18 149/94 H 95 12/29/22 10:51 36.5 C 77 18 151/97 H 96 O2 Del Method O2 Flow Rate 12/29/22 19:21 CPAP 3 12/29/22 17:18 12/29/22 15:38 Nasal Cannula 4 12/29/22 14:28 Nasal Cannula 3 12/29/22 10:51 Nasal Cannula 3 Laboratory Results Laboratory Results - last 24 hr 12/29/22 12/29/22 06:14 06:14 WBC 14.34 H RBC 4.71 Hgb 14.4 Hct 42.0 MCV 89.2 MCH 30.6 MCHC 34.3 RDW Std Deviation 41.7 RDW Coeff of Boris 12.8 Plt Count 299 MPV 9.2 L Immature Gran % (Auto) 0.6 Neut % (Auto) 84.1 Lymph % (Auto) 7.4 [place] % (Auto) 7.5 Eos % (Auto) 0.1 Baso % (Auto) 0.3 Neut # (Auto) 12.06 H Lymph # (Auto) 1.06 L [place] # (Auto) 1.07 H Eos # (Auto) 0.02 Baso # (Auto) 0.04 Immature Gran # (Auto) 0.09 Sodium 138 Potassium 4.8 Chloride 104 Carbon Dioxide 30 Anion Gap 4 BUN 16 Creatinine 0.94 Est Cr Clr Drug Dosing 112.7 Est GFR ( Amer) 114.6 Est GFR (Non-Af Amer) 98.9 BUN/Creatinine Ratio 17.0 Glucose 113 H Calcium 9.4 Magnesium 2.0 PG Care Time/CCT Total # of Minutes Spent Total Time Spent with Patient: Total time spent is greater than 50% in coordination of care (as documented) at patient's floor/unit and/or counseling patient: Coding Level of Care Code 74456 SUB INP/OBS CARE 2/35MIN Diagnoses Acute respiratory failure with hypoxia J96.01 Rhinovirus infection B34.8 GERD (gastroesophageal reflux disease) K21.9 HTN (hypertension), benign I10 Morbid (severe) obesity due to excess calories E66.01 Obstructive sleep apnea G47.33 Tobacco use disorder F17.200 Hyperlipidemia E78.5 Migraine G43.909
[2022-12-30] MEDS: methylPREDNISolone 40 MG in SYRINGE 0 ML IV SCH ×2 (05:15→14:19)
[2022-12-30] MEDS: ALBUT/IPRATROP 3MG/0.5MG NEB 3 ML VIAL NEB SCH ×4 (07:29→19:40)
[2022-12-30 08:04] LABS: Hematocrit (blood only) 43.5 % (42.0-52.0); Hemoglobin 14.7 g/dl (14.0-18.0); Mean Corpuscular Hemoglobin 30.6 pg (25.0-34.0); Mean Corpuscular Hgb Conc 33.8 g/dL (32.0-36.0); Mean Corpuscular Volume 90.4 fL (80.0-100.0); Mean Platelet Volume 9.2 fL (9.4-12.4); Platelet Count 337 K/uL (130-400); RDW Coefficient of Variation 12.6 % (11.5-14.5); RDW Standard Deviation 41.9 fL (36.4-46.3); Red Blood Count 4.81 M/uL (4.70-6.10); White Blood Count 17.05 K/ul (4.8-10.8)
[2022-12-30 08:13] LABS: BUN Creatinine Ratio 22.2 (10-20); Calcium 9.5 mg/dl (8.6-10.3); Creatinine Clr Calc Pharmacy 117.8 ml/min; Est GFR (African American) 120.8 ml/min; Est GFR (Non-African American) 104.2 ml/min; Potassium 4.5 mmol/L (3.5-5.1)
[2022-12-30 08:31] LABS: Basophils # (auto) 0.02 K/uL (0-0.2); Basophils % (auto) 0.1 %; Immature Granulocytes # (auto) 0.19 K/uL (0.01-0.20); Immature Granulocytes % (auto) 1.1 %; Lymphocytes # (auto) 0.94 K/uL (1.2-3.4); Lymphocytes % (auto) 5.5 %; Monocytes # (auto) 0.45 K/uL (0.11-0.59); Monocytes % (auto) 2.6 %; Neutrophils # (auto) 15.45 K/uL (1.40-6.50); Neutrophils % (auto) 90.7 %
[2022-12-30] MEDS: BENZONATATE 100 MG CAPSULE PO SCH ×3 (08:33→20:55)
[2022-12-30] MEDS: PANTOprazole 40 MG TAB PO SCH (08:33)
[2022-12-30] MEDS: amLODIPine BESYLATE 5 MG TAB PO SCH (08:34)
[2022-12-30] MEDS: SERTRALINE HCL 100 MG TABLET PO SCH (08:34)
[2022-12-30] MEDS: lisinopril 10 MG TAB PO SCH (08:34)
[2022-12-30] MEDS: GABAPENTIN 800 MG TAB PO SCH ×3 (08:34→20:56)
[2022-12-30] MEDS: buPROPion XL 150 MG TABCR PO SCH (08:34)
[2022-12-30] MEDS: guaiFENesin 600 MG TABCR PO SCH ×2 (08:35→20:55)
[2022-12-30] MEDS: NICOTINE 14 MG/24 HR PATCH TD SCH (08:35)
[2022-12-30] MEDS: ACETAMINOPHEN 325 MG TAB PO PRN (08:44)
[2022-12-30] MEDS: LIDOCAINE 5% 1 PATCH TD SCH (09:29)
[2022-12-30] MEDS: tiZANidine HCL 4 MG TABLET PO PRN ×2 (12:28→20:55)
[2022-12-30] MEDS: KETOROLAC TROMETHAMINE 15 MG/ML VIAL IV PRN ×2 (12:32→20:56)
[2022-12-30] MEDS ORDERED: SUMAtriptan succinate 50 MG TAB PO STA (15:35)
--- NOTE | 2022-12-30 18:42 | Hospitalist Progress Note ---
Date of Service December 30, 2022 Assessment & Plan (1) Acute respiratory failure with hypoxia: Plan: 2nd to acute bronchitis from rhinovirus infection improving plan - * cont solumedrol but wean to 30mg IV q8h * cont nebs qid scheduled * flutter valve/incentive stefano * tessalon TID (2) Rhinovirus infection: Plan: with resulting #1/acute bronchitis droplet precautions see #1 above improving (3) GERD (gastroesophageal reflux disease): Plan: cont PPI (4) HTN (hypertension), benign: Plan: cont amlodipine cont lisinopril (5) Morbid (severe) obesity due to excess calories: Plan: BMI 43 (6) Obstructive sleep apnea: Plan: CPAP with O2 at HS (7) Tobacco use disorder: 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 Admission and Anticipated Discharge Date Admission Date: December 28, 2022 Subjective pt feeling much better today can take deeper breaths still wheezing but improved not as dyspneic eating well took walk with staff in hallways sats dropped to 89% toward end of walk (in room air) Review of Systems Review of Systems: gen - no fevers cv - no chest pain or tightness pulm - no dyspnea at rest GI - no diarrhea musculo - rib pain from coughing improved Physical Exam Physical Exam: gen - morbidly obese, NAD, looks much better today neck - no JVD mouth - MMM heart - RRR, s1 s2, no murmur lungs - airation improved, mild wheezes b/l, minimal crackles bases abd - soft NT ND BS+ ext - no edema, pulses 2+ b/l psych - a/o x 3 Results & Data Results & Data Vital Signs (Past 12 Hours) Vital Signs Temp Pulse Pulse Resp BP BP Pulse Ox 12/30/22 16:02 82 18 94 12/30/22 15:53 98 H 12/30/22 15:28 36.6 C 75 18 132/67 95 12/30/22 12:08 12/30/22 11:51 36.5 C 86 20 133/64 93 12/30/22 11:49 109 H 18 91 12/30/22 08:11 36.8 C 72 18 152/94 H 93 12/30/22 07:42 73 12/30/22 07:29 81 18 89 L O2 Del Method O2 Flow Rate 12/30/22 16:02 Nasal Cannula 2 12/30/22 15:53 12/30/22 15:28 Nasal Cannula 2 12/30/22 12:08 Nasal Cannula 2 12/30/22 11:51 Room Air 12/30/22 11:49 Room Air 12/30/22 08:11 Nasal Cannula 2 12/30/22 07:42 12/30/22 07:29 Room Air Laboratory Results Laboratory Results - last 24 hr 12/30/22 12/30/22 07:10 07:10 WBC 17.05 H RBC 4.81 Hgb 14.7 Hct 43.5 MCV 90.4 MCH 30.6 MCHC 33.8 RDW Std Deviation 41.9 RDW Coeff of Boris 12.6 Plt Count 337 MPV 9.2 L Immature Gran % (Auto) 1.1 Neut % (Auto) 90.7 Lymph % (Auto) 5.5 [place] % (Auto) 2.6 Eos % (Auto) 0.0 Baso % (Auto) 0.1 Neut # (Auto) 15.45 H Lymph # (Auto) 0.94 L [place] # (Auto) 0.45 Eos # (Auto) 0.00 Baso # (Auto) 0.02 Immature Gran # (Auto) 0.19 Sodium 135 L Potassium 4.5 Chloride 101 Carbon Dioxide 28 Anion Gap 6 BUN 20 Creatinine 0.90 Est Cr Clr Drug Dosing 117.8 Est GFR ( Amer) 120.8 Est GFR (Non-Af Amer) 104.2 BUN/Creatinine Ratio 22.2 H Glucose 141 H Calcium 9.5 PG Care Time/CCT Total # of Minutes Spent Total Time Spent with Patient: Total time spent is greater than 50% in coordination of care (as documented) at patient's floor/unit and/or counseling patient: Coding Level of Care Code 92794 SUB INP/OBS CARE 2/35MIN Diagnoses Acute respiratory failure with hypoxia J96.01 Rhinovirus infection B34.8 GERD (gastroesophageal reflux disease) K21.9 HTN (hypertension), benign I10 Morbid (severe) obesity due to excess calories E66.01 Obstructive sleep apnea G47.33 Tobacco use disorder F17.200 Hyperlipidemia E78.5 Migraine G43.909
[2022-12-30] MEDS: ENOXAPARIN INJ 40 MG/0.4 ML SYR SQ SCH (20:54)
[2022-12-30] MEDS: ATORVASTATIN 40 MG TAB PO SCH (20:55)
[2022-12-30] MEDS: methylPREDNISolone 30 MG in SYRINGE 0 ML IV SCH (22:52)
[2022-12-31] MEDS: methylPREDNISolone 30 MG in SYRINGE 0 ML IV SCH ×2 (05:47→15:37)
[2022-12-31 06:13] LABS: Basophils # (auto) 0.03 K/uL (0-0.2); Basophils % (auto) 0.2 %; Hemoglobin 13.8 g/dl (14.0-18.0); Immature Granulocytes # (auto) 0.21 K/uL (0.01-0.20); Immature Granulocytes % (auto) 1.3 %; Lymphocytes % (auto) 6.8 %; Mean Corpuscular Hemoglobin 30.5 pg (25.0-34.0); Mean Corpuscular Hgb Conc 34.5 g/dL (32.0-36.0); Mean Corpuscular Volume 88.5 fL (80.0-100.0); Mean Platelet Volume 9.3 fL (9.4-12.4); Monocytes # (auto) 0.85 K/uL (0.11-0.59); Monocytes % (auto) 5.2 %; Neutrophils # (auto) 14.07 K/uL (1.40-6.50); Neutrophils % (auto) 86.5 %; Platelet Count 312 K/uL (130-400); RDW Coefficient of Variation 12.7 % (11.5-14.5); RDW Standard Deviation 41.2 fL (36.4-46.3); Red Blood Count 4.52 M/uL (4.70-6.10); White Blood Count 16.26 K/ul (4.8-10.8)
[2022-12-31 06:28] LABS: BUN Creatinine Ratio 27.7 (10-20); Creatinine Clr Calc Pharmacy 112.8 ml/min; Est GFR (African American) 114.6 ml/min; Est GFR (Non-African American) 98.9 ml/min; Potassium 4.4 mmol/L (3.5-5.1)
[2022-12-31] MEDS: ALBUT/IPRATROP 3MG/0.5MG NEB 3 ML VIAL NEB SCH ×3 (07:19→15:04)
[2022-12-31] MEDS: NICOTINE 14 MG/24 HR PATCH TD SCH (08:16)
[2022-12-31] MEDS: tiZANidine HCL 4 MG TABLET PO PRN (08:16)
[2022-12-31] MEDS: buPROPion XL 150 MG TABCR PO SCH (08:17)
[2022-12-31] MEDS: lisinopril 10 MG TAB PO SCH (08:17)
[2022-12-31] MEDS: PANTOprazole 40 MG TAB PO SCH (08:17)
[2022-12-31] MEDS: amLODIPine BESYLATE 5 MG TAB PO SCH (08:17)
[2022-12-31] MEDS: SERTRALINE HCL 100 MG TABLET PO SCH (08:17)
[2022-12-31] MEDS: LIDOCAINE 5% 1 PATCH TD SCH (08:18)
[2022-12-31] MEDS: guaiFENesin 600 MG TABCR PO SCH (11:03)
[2022-12-31] MEDS: GABAPENTIN 800 MG TAB PO SCH ×2 (11:03→15:37)
[2022-12-31] MEDS: BENZONATATE 100 MG CAPSULE PO SCH ×2 (11:03→15:37)
--- NOTE | 2022-12-31 16:37 | Discharge Summary ---
Date of Service December 31, 2022 Admission HPI Per Admitting Provider Rashi is a 41-year-old male with a past medical history of hyperlipidemia, GERD, hypertension, tobacco use disorder, alcoholism, PUNEET, nocturnal hypoxemia, depression/anxiety, history of dysphagia with normal EGD who presents to the emergency department with cough, congestion, rhinitis and a sore throat of 3 days with diffuse myalgias/arthralgias and fevers [place] [address] at home. He is recommended for for hypoxic respiratory failure of suspected viral URI. Rashi presents to the emergency department with several days of rib discomfort when coughing, inspiratory pain when breathing, shortness of breath, low-grade fevers and general achiness. Painful to breath. No chest pain, but notes his bottom ribs feel painful from coughing. Additionally has pain in his ribs and taking a deep breath. Tired and arms feel achy. Cigarettes 1ppd x30 years, denies history of COPD No history of ME. FHx of ME in 40s, father PGM and uncles. PGM with CVA in older age. uses CPAP with oxygen bleed qhs, but does not know how much took medicines this morning No dysuria Endorses rib pain, but no abdominal pain Medical History: Reviewed Medications: Reviewed Surgical History: Reviewed Family history: Reviewed Allergies: Reviewed Social History: 1ppd. Etoh 2-3 days per week, 4 drinks in a sitting. No history of withdrawal Code Status: Code Full Discharge Exam gen - morbidly obese, NAD, looks much better today neck - no JVD mouth - MMM heart - RRR, s1 s2, no murmur lungs - airation improved, mild wheezes b/l, minimal crackles bases abd - soft NT ND BS+ ext - no edema, pulses 2+ b/l psych - a/o x 3 Discharge Data Allergies Allergy/AdvReac Type Severity Reaction Status Date / Time No Known Allergies Allergy Verified 12/28/22 14:32 Consultations 12/28/22 13:13 ED Decision to Admit Stat Ordered Studies 12/28/22 13:17 CT angio chest PE protocol Stat Hospital Course (1) Acute respiratory failure with hypoxia: 2nd to acute bronchitis from rhinovirus infection improving plan - * cont solumedrol but wean to 30mg IV q8h * cont nebs qid scheduled * flutter valve/incentive stefano * tessalon TID (2) Rhinovirus infection: with resulting #1/acute bronchitis droplet precautions see #1 above improving (3) GERD (gastroesophageal reflux disease): cont PPI (4) HTN (hypertension), benign: cont amlodipine cont lisinopril (5) Morbid (severe) obesity due to excess calories: BMI 43 (6) Obstructive sleep apnea: CPAP with O2 at HS (7) Tobacco use disorder: 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 Discharge Plan Discharge Items Patient Disposition: Home - Self-Care Reason For Visit: Acute bronchitis Discharge Diagnosis: Acute bronchitis due to rhinovirus infection - improving Activity: As commented below Activity Comment: gradually increase activities as tolerated over the next week Exercise/Sports: Wait until after follow-up appointment Non-emergency contact: Primary Care Provider Call non-emergency contact if: you have any medication questions, your symptoms worsen and you have a fever Follow-up/Referrals: Jennifer Urrutia MD [Primary Care Provider] - 01/05/23 9:30 am (appointment with dr. Luciano at [facility]) Diet: Heart Healthy Addtl Attending Provider Instructions: Mr Colón, Zac were hospitalized for acute bronchitis due to rhinovirus infection. Rhinovirus is a common cold virus but in some individuals it can cause significant bronchitis. You improved with nebulizer treatments and IV steroids. Your oxygen on day of discharge is normal at rest and with walking. CT scan of the chest did not show pneumonia or blood clots. I am concerned that due to ongoing smoking you may be developing "COPD." COPD is a term we use for someone with chronic cough, emphysema, etc. I would recommend seeing a lung specialist to determine if you have COPD. Recommendations - 1. prednisone taper; start 01/01/23. Take with food. 2. albuterol neb treatments - * the liquid neb treatments were sent to [facility] for you * the paper prescription for a nebulizer machine can be taken to a medical supply store like "[facility]" and they can get you one there * once you have your machine you can take 1 treatment every 6 hours as needed for cough/wheezing/shortness of breath 3. albuterol via handheld inhaler with spacer - * your handheld albuterol inhaler works best if you attach it to a device called a "spacer" * see handout * I sent a prescription for the spacer to [facility] * the albuterol with spacer is convenient when you are at work, out of the house, etc * albuterol via spacer can be used every 6 hours as needed for cough/wheeze/etc 4. for cough may use - * [id number] mucinex up to 1200mg twice daily as needed * I have also prescribed benzonatate perles 100mg every 8 hours as needed; this suppresses the cough 5. please talk to your family doctor about ways to quit smoking 6. please ask your family doctor about [facility] to determine if you have COPD Follow-up - see separate section [facility] - * you have fevers over 100 degrees * you have worsening shortness of breath despite taking your albuterol, prednisone, etc * you have chest pains * any other concerns It was our pleasure to care for you! Dr Navarrete Pending Studies at Discharge: No Stand-Alone Forms: My [facility], Work/School Release, Smoking Cessation Medications and DC Order Prescriptions: New (DME) nebulizers [facility] See Rx Instructions .Route Qty: 1 0RF Rx Instructions: As directed albuterol sulfate 2.5 mg /3 mL (0.083 %) solution for nebulization 2.5 mg inhalation Q6H PRN (Reason: cough/wheezing/shortness of breath) Qty: 90 0RF benzonatate 100 mg capsule 100 mg PO TID PRN (Reason: cough) Qty: 20 0RF prednisone 10 mg tablet 10 mg PO DIRECTED Qty: 27 0RF Rx Instructions: start 01/01, take w/ food. 4 tabs PO QD x 3 days; 3 tabs PO QD x 3 days; 2 tabs PO QD x 2 days; 1 tab PO QD x 2 days. (DME) Aerochamber Plus Flow-Vu Spacer See Rx Instructions .Route Qty: 1 0RF Rx Instructions: use with albuterol inhaler Continued tizanidine 4 mg tablet 4 mg PO Q6H PRN (Reason: muscle spasticity) Qty: 90 2RF gabapentin 800 mg tablet 800 mg PO TID Qty: 90 2RF atorvastatin 40 mg tablet 40 mg PO QPM Qty: 30 2RF Rx Instructions: Pt. aware of dose change fluticasone propionate [Flonase Allergy Relief] 50 mcg/actuation spray,benton spension See Rx Instructions intranasal BID PRN (Reason: Congestion) Rx Instructions: intranasally twice a day PRN; amlodipine 10 mg tablet 10 mg PO QAM Qty: 30 5RF bupropion HCl [Wellbutrin XL] 150 mg tablet extended release 24 hr 150 mg PO QAM Qty: 30 5RF hydroxyzine HCl 25 mg tablet 25 mg PO TID PRN (Reason: anxiety) Qty: 90 5RF lisinopril 10 mg tablet 10 mg PO QAM Qty: 30 5RF pantoprazole 40 mg tablet,delayed release (DR/EC) 40 mg PO QAM Qty: 30 5RF triamcinolone acetonide 0.1 % cream 1 applic topical BID PRN (Reason: rash) Qty: 15 0RF sertraline 100 mg tablet 100 mg PO QAM Qty: 30 5RF sumatriptan succinate 50 mg tablet 50 mg PO UD PRN (Reason: Migraine Headache) Qty: 30 5RF Rx Instructions: take 1 tab at onset of headache; if no relief may repeat 1 tab after at least 2 hrs; max = 4 tabs/24 hr PO Changed albuterol sulfate 90 mcg/actuation HFA aerosol inhaler 2 inh inhalation Q6H PRN (Reason: shortness of breath or wheezing) Qty: 6.7 2RF Discharge Orders: Discharge Order (Routine); Ordered 12/31/22 Ordered By: Christo Bob/Other Patient Handouts: Using an Inhaler with a Spacer, Using a Nebulizer (Adult) Admission Data Admit Date/Time: 12/28/22 14:21 Attending Provider: Christo Navarrete Admit Provider: Artem Koenig Primary Care Provider: Jennifer Urrutia Other Providers: Artem Koenig Coding Diagnoses Acute respiratory failure with hypoxia J96.01 Rhinovirus infection B34.8 GERD (gastroesophageal reflux disease) K21.9 HTN (hypertension), benign I10 Morbid (severe) obesity due to excess calories E66.01 Obstructive sleep apnea G47.33 Tobacco use disorder F17.200 Hyperlipidemia E78.5 Migraine G43.90
== END 2022-12-31 17:06 | disposition home or self-care (01) | DRG 189 ==
LOC: ED 10:33 → SUATTDRO 14:21 → EDINP 14:21 → 2W 19:41
DX: E78.5 Hyperlipidemia, unspecified; Z86.16 Personal history of COVID-19; Z83.3 Family history of diabetes mellitus; Z68.41 Body mass index [BMI] 40.0-44.9, adult; F17.210 Nicotine dependence, cigarettes, uncomplicated; J96.01 Acute respiratory failure with hypoxia; E66.01 Morbid (severe) obesity due to excess calories; J06.9 Acute upper respiratory infection, unspecified; F41.8 Other specified anxiety disorders; I10 Essential (primary) hypertension; G47.33 Obstructive sleep apnea (adult) (pediatric); J20.6 Acute bronchitis due to rhinovirus; F10.20 Alcohol dependence, uncomplicated